=== PATIENT | male | born 1930 | race Caucasian/White ===

== ENCOUNTER 2019-07-15 06:55 | Inpatient (IN) | payer MEDICARE, BC ==
[~2019-07-15] VITALS: Ht 177.8 cm; Wt 82.8 kg
[2019-07-15 07:14] LABS: PO2 Arterial 80.6 mmHg (80-100)
[2019-07-15 07:46] LABS: BASOPHILS ABSOLUTE AUTO 0.05 K/mm3 (0.00-0.23); BASOPHILS PERCENT AUTO 0 % (0-2); EOSINOPHILS ABSOLUTE AUTO 0.19 K/mm3 (0.00-0.68); EOSINOPHILS PERCENT AUTO 1 % (0-6); Hematocrit 30.9 % (37.0-53.0); Hemoglobin 8.9 g/dL (13.5-17.5); IMMATURE GRAN ABSOLUTE AUTO 0.26 K/mm3 (0.00-0.10); IMMATURE GRAN PERCENT AUTO 2 % (0-1); LYMPHOCYTES ABSOLUTE AUTO 1.97 K/mm3 (0.84-5.20); LYMPHOCYTES PERCENT AUTO 11 % (21-46); MONOCYTES ABSOLUTE AUTO 1.22 K/mm3 (0.16-1.47); MONOCYTES PERCENT AUTO 7 % (4-13); Mean Corpuscular HGB 31.9 pg (26.0-34.0); Mean Corpuscular HGB Conc 28.8 g/dL (31.5-36.5); Mean Corpuscular Volume 111 fL (80-100); Mean Platelet Volume 10.4 fL (9.1-12.4); NEUTROPHILS ABSOLUTE AUTO 13.82 K/mm3 (1.96-9.15); NEUTROPHILS PERCENT AUTO 79 % (41-73); NRBC ABSOLUTE 0.12 K/mm3 (0.00-0.02); NRBC Auto 0.7 /100 WBC (0.0-0.2); Platelet Count 268 K/mm3 (150-400); RDW Coefficient Variation 18.9 % (11.7-14.2); RDW Standard Deviation 71.5 fL (35.1-46.3); Red Blood Cell Count 2.79 M/mm3 (4.30-5.90); White Blood Cell Count 17.51 K/mm3 (4.00-11.30)
[2019-07-15] MEDS ORDERED: CARV3.125 PO (07:53)
[2019-07-15] MEDS ORDERED: DULO60 PO (07:53)
[2019-07-15] MEDS ORDERED: DONEPEZIL HCL10 MG PO (07:54)
[2019-07-15] MEDS ORDERED: Entocort EC 3 mg3 MG PO (07:54)
[2019-07-15] MEDS ORDERED: IRON PO (07:54)
[2019-07-15] MEDS ORDERED: K-Dur20 MEQ PO (07:55)
[2019-07-15] MEDS ORDERED: VITAMIN C PO (07:55)
[2019-07-15] MEDS ORDERED: FURO40 PO (07:55)
[2019-07-15] MEDS ORDERED: SPIR25 PO (07:56)
[2019-07-15] MEDS ORDERED: LOSA25 PO (07:56)
[2019-07-15] MEDS ORDERED: ELIQUIS2.5 MG PO (07:56)
[2019-07-15] MEDS ORDERED: MELATONIN 5 MG1 EACH PO (07:57)
[2019-07-15] MEDS ORDERED: ALLER CLEAR PO (07:57)
[2019-07-15] MEDS ORDERED: TEMA30 PO (07:57)
[2019-07-15] MEDS ORDERED: DRON2.5 PO (07:58)
[2019-07-15 08:06] LABS: Alanine Aminotransfer (ALT/SGP 14 U/L (12-78); Albumin, Blood 2.8 g/dL (3.4-5.0); Albumin/Globulin Ratio 0.7 (0.8-1.8); Alk Phos 91 U/L (50-136); Anion Gap 17 mmol/L (6-16); Aspartate Aminotrans (AST/SGOT 22 U/L (12-37); Bilirubin, Total 0.4 mg/dL (0.1-1.0); Blood Urea Nitrogen 31 mg/dL (8-24); CO2, Blood 12 mmol/L (21-32); Calcium, Blood 8.2 mg/dL (8.5-10.1); Chloride, Blood 110 mmol/L (98-108); Creatinine, Blood 2.21 mg/dL (0.60-1.20); Globulin, Blood 3.9 g/dL (2.2-4.0); Glomerular Filtration Rate 28 (60-); Glucose, Blood 245 mg/dL (70-99); Potassium, Blood 5.2 mmol/L (3.5-5.5); Sodium, Blood 139 mmol/L (136-145); Total Protein, Blood 6.7 g/dL (6.4-8.2); Troponin I <0.015 ng/mL (0.000-0.040)
--- NOTE | 2019-07-15 12:00 | NUR ---
INITIAL ASSESSMENT Assumed care of pt upon arrival to ICU 3 from ED. Pt arrived wearing 15 LPM nonrebreather. SpO2 90% or greater. Lungs coarse t/o with diminished bases. SR per monitor. BP stable. Pt responsive to verbal stimulus. Follows commands with repositioning. Wet attends on arrival. Attends changed. Pt has colostomy. Pt falls asleep shortly after arrival to unit. Pt placed back on BiPAP 12/8, 80%. Pt had nitro paste to left chest wall, likely placed in ED. Placed call to Dr Fields to clarify if this should remain in place. Removed per Dr Fields's orders. Discussed somers catheter placement. New orders given.
[2019-07-15 12:20] LABS: Source, Urine Catheter
[2019-07-15 12:37] LABS: Bilirubin, Urine Neg (Neg); Blood, Urine Neg (Neg); Glucose Qualitative, Urine Neg (Neg); Ketones, Urine Neg (Neg); Leukocyte Esterase, Urine Neg (Neg); Nitrite, Urine Neg (Neg); Protein, Urine 1+ (Neg); Urobilinogen, Urine NORM (Normal)
[2019-07-15 12:41] LABS: Appearance, Urine Clear (Clear); Color, Urine Yellow (P-Yellow)
[2019-07-15] MEDS ORDERED: ALPR.5 PO (14:00)
[2019-07-15] MEDS ORDERED: FERSU300 PO (14:01)
[2019-07-15] MEDS ORDERED: ASCO500 PO (14:01)
[2019-07-15] MEDS ORDERED: Loratadine10 MG PO (14:02)
[2019-07-15] MEDS ORDERED: PANT40 PO (14:03)
[2019-07-15 14:07] LABS: PCO2 Arterial 28.6 mmHg (35-45); PO2 Arterial 189 mmHg (80-100); pH Blood Arterial 7.43 (7.35-7.45)
--- NOTE | 2019-07-15 15:16 | NUR ---
UPDATE This RN placed call to pt's spouse, Maryan "Promise" Aleyda to provide update. tiffany answered questions for admission, including meds and history. She states that patient takes both alprazolam and temazepam at bedtime. She also warns "He will try to get you to give him extra temazepam; don't do it". When aquiring health history, she states that pt was placed on hospice in 2017 for CHF and eventually graduated. She verifies pt's DNR/DNI status. Pt has copy of POLST in chart, however it is unsigned.
--- NOTE | 2019-07-15 15:30 | NUR ---
O2 UPDATE BiPAP 12/8 and 25% FiO2. Pt taken off BiPAP. Placed on 1 LPM NC to maintain SpO2 90% or greater. Will continue to reassess.
--- NOTE | 2019-07-15 15:48 | NUR ---
CALL PLACED TO DR HOLT Updated on pt condition. Pt okay for cardiac diet. Also notified provider that pt had been taking temazepam and alprazolam every night.
--- NOTE | 2019-07-15 18:09 | NUR ---
SUMMARY Pt A&O x 2. Answers questions. Verbalizes needs. Follows commands. Pt pleasant and cooperative with care. Pt has not gotten OOB this shift. Drinks water without difficulty or signs of aspiration. Pt refused dinner. Pt SR per monitor. Pt medical floor status without telemetry at this time.
--- NOTE | 2019-07-15 18:09 | NUR ---
MEDICAL FLOOR STATUS Dr Fields updated on pt condition. Pt medical floor status at this time, no telemetry ordered.
--- NOTE | 2019-07-15 20:00 | NUR ---
ASSUMED CARE OF PT, REPORT RCV'D FROM YAN HARPER. PT ALERT WITH PERIODS OF CONFUSION (HX OF DEMENTIA), COOPERATIVE WITH CARE. PT ASKS REPEATEDLY WHEN HE WILL BE ABLE TO GO HOME AND STATES HE "HAS TO PEE". REMINDED PT THAT HE HAS A URBINA IN PLACE. PT CURRENTLY ON 2L NC WITH SATS OF 95%. LUNG SOUNDS CLEAR WITH DIM BASES. NSR, BP WNL. PT HAS COLOSTOMY LLQ, APPLIANCE C/D/I. TEMP PROBE URBINA PATENT DRAINING CLEAR YELLOW URINE. CURRENT TEMP 99 DEGREES. SKIN ECCHYMOTIC SCATTERED BUE/BLE. GENERALIZED WEAKNESS. 20G IV LEFT SHOULDER SL, 20G IV RIGHT SHOULDER SL. SEE FULL SHIFT ASSESSMENT
[2019-07-16 05:07] LABS: Hematocrit 26.9 % (37.0-53.0); Hemoglobin 8.2 g/dL (13.5-17.5); Mean Corpuscular HGB 31.2 pg (26.0-34.0); Mean Corpuscular HGB Conc 30.5 g/dL (31.5-36.5); Mean Corpuscular Volume 102 fL (80-100); Mean Platelet Volume 10.2 fL (9.1-12.4); NRBC ABSOLUTE 0.13 K/mm3 (0.00-0.02); NRBC Auto 0.7 /100 WBC (0.0-0.2); Platelet Count 234 K/mm3 (150-400); RDW Coefficient Variation 18.5 % (11.7-14.2); RDW Standard Deviation 66.6 fL (35.1-46.3); Red Blood Cell Count 2.63 M/mm3 (4.30-5.90); White Blood Cell Count 18.71 K/mm3 (4.00-11.30)
[2019-07-16 05:37] LABS: Bun/Creatinine Ratio 15.2 (12.0-20.0); Calcium, Blood 7.9 mg/dL (8.5-10.1); Creatinine, Blood 2.24 mg/dL (0.60-1.20); Potassium, Blood 4.6 mmol/L (3.5-5.5)
--- NOTE | 2019-07-16 06:03 | NUR ---
SHIFT SUMMARY PATIENT ALERT, BUT EXPERIENCED SOME CONFUSION OVERNIGHT. HIS RIGHT LEG AND BUTTOCK HAVE BEEN CAUSING HIM DISCOMFORT, PATIENT MEDICATED PER EMAR FOR PAIN, REPOSITIONING ATTEMPTED AND A HEAT PAD HAS BEEN APPLIED TO THE AREA. THE PATIENT IS CURRENTLY COMFORTABLE. HE HAS BEEN UNABLE TO VOID ALL NIGHT, HIS BLADDER IS NOT DISTENDED AND SHOWS NO SIGN OF DISCOMFORT DUE TO IT. PATIENT HAS A HARD TIME BREATHING EVEN AT REST BUT O2 SATS ARE IN THE 90'S. BOTH IVS PATENT AND FLUSHED. BED IN LOWEST POSITION WITH WHEELS LOCKED AND ALARM ON. CALL LIGHT WITHIN REACH. REPORT GIVEN TO ONCOMING RN.
--- NOTE | 2019-07-16 07:59 | NUR ---
PT TO IMAGING FOR CHEST XRAY.
--- NOTE | 2019-07-16 13:29 | NUR ---
Echocardiogram completed.
--- NOTE | 2019-07-16 18:28 | NUR ---
SHIFT SUMMARY: PT TAKEN OFF OF OXYGEN VIA NC AT BEGINNING OF SHIFT. PT'S OXYGEN LEVEL REMAINED IN HIGH 90'S WITHOUT THE OXYGEN. PT LUNGS ARE DIMINISHED BILATERALLY. PT IS REFUSING TO EAT OR DRINK MUCH FLUIDS AND REPORTS NOT LIKING ENSURE. NO PAIN OR NAUSEA REPORTED TODAY. PT ABLE TO VOID IN URINAL AND SOME INCONTINENCE. PT WENT FOR CHEST XRAY TODAY AND ALSO HAD AN ECHO DONE. WILL CONTINUE TO MONITOR PT UNTIL GIVING REPORT TO NIGHT RN.
--- NOTE | 2019-07-16 20:49 | NUR ---
AWAKE EARLIER, VOICED CONFUSION TO 8 PM OR 8 AM. REDIRECTED. RESTING QUIETLY AT THIS TIME WITH CALL LIGHT IN REACH.
--- NOTE | 2019-07-17 04:01 | NUR ---
SHIFT SUMMARY HAS BEEN RESTING QUIETLY WITH FEW INTERRUPTIONS THIS SHIFT. EARLIER IN THE SHIFT WEEMED DISORIENTED TO TIME, WAS REDIRECTED AND PT WENT BACK TO SLEEP. WOKE UP LATER AND REQUESTED ANALGESIC FOR NECK PAIN. REPOSITIONED AND MED GIVEN (SEE MAR FOR DETAILS) MED EFFECTIVE, CURRENTLY RESTING QUIETLY. CALL LIGHT IN REACH.
[2019-07-17 04:50] LABS: BASOPHILS ABSOLUTE AUTO 0.05 K/mm3 (0.00-0.23); BASOPHILS PERCENT AUTO 0 % (0-2); EOSINOPHILS ABSOLUTE AUTO 0.18 K/mm3 (0.00-0.68); EOSINOPHILS PERCENT AUTO 1 % (0-6); Hematocrit 27.3 % (37.0-53.0); Hemoglobin 8.5 g/dL (13.5-17.5); IMMATURE GRAN PERCENT AUTO 2 % (0-1); LYMPHOCYTES ABSOLUTE AUTO 0.61 K/mm3 (0.84-5.20); LYMPHOCYTES PERCENT AUTO 5 % (21-46); MONOCYTES ABSOLUTE AUTO 1.13 K/mm3 (0.16-1.47); MONOCYTES PERCENT AUTO 9 % (4-13); Mean Corpuscular HGB 31.7 pg (26.0-34.0); Mean Corpuscular HGB Conc 31.1 g/dL (31.5-36.5); Mean Corpuscular Volume 102 fL (80-100); Mean Platelet Volume 10.1 fL (9.1-12.4); NEUTROPHILS ABSOLUTE AUTO 11.05 K/mm3 (1.96-9.15); NEUTROPHILS PERCENT AUTO 84 % (41-73); NRBC Auto 0.8 /100 WBC (0.0-0.2); Platelet Count 248 K/mm3 (150-400); RDW Coefficient Variation 18.2 % (11.7-14.2); RDW Standard Deviation 65.1 fL (35.1-46.3); Red Blood Cell Count 2.68 M/mm3 (4.30-5.90); White Blood Cell Count 13.22 K/mm3 (4.00-11.30)
[2019-07-17 05:10] LABS: Albumin, Blood 2.6 g/dL (3.4-5.0); Anion Gap 11 mmol/L (6-16); Blood Urea Nitrogen 38 mg/dL (8-24); Bun/Creatinine Ratio 15.6 (12.0-20.0); CO2, Blood 20 mmol/L (21-32); Chloride, Blood 102 mmol/L (98-108); Creatinine, Blood 2.44 mg/dL (0.60-1.20); Glomerular Filtration Rate 27 (60-); Glucose, Blood 108 mg/dL (70-99); Phosphorus, Blood 3.6 mg/dL (2.5-4.9); Potassium, Blood 4.9 mmol/L (3.5-5.5); Sodium, Blood 133 mmol/L (136-145)
--- NOTE | 2019-07-17 11:45 | NUR ---
NURSE NOTE: SPOKE WITH PT'S , GINNY, TODAY REGARDING HIS LACK OF APPETITE. WAS ABLE TO SUGGEST FOOD THAT THE PT LIKES TO EAT AT HOME. THIS RN COMMUNICATED THE REPORTED PREFERENCES TO THE CORE BLOWER. DR. MAURICIO INFORMED OF PT'S LACK OF APPETITE ALSO. PT'S SPOUSE BROUGHT LAAN KAMARA BREAKFAST CROSSIANTS TO HOSPITAL FOR PT. CROSSIANTS WERE PLACED IN PANTRY WITH PT DECAL TRANSFERRER THEM. WILL CONTINUE TO ENCOURAGE PT TO EAT AND DRINK.
--- NOTE | 2019-07-17 18:08 | NUR ---
SHIFT SUMMARY: PT REMAINED ON ROOM AIR WITH OXYGEN SATS IN THE 90'S. LUNG SOUNDS ARE DIMINISHED. PT GETS VERY SHORT OF BREATH WITH ANY EXERTION. PT REFUSED MOST MEALS TODAY ONLY EATING HALF OF A ALAN ASAD BREAKFAST SANDWICH AND DRINKING SOME ICE WATER AND A CHOCOLATE MILK. SPOKE WITH PT'S ABOUT FOOD PREFERENCES AND SPOKE WITH PHARMACY BENEFITS COORDINATOR. PT REPORTED NAUSEA AND PAIN AND WAS MEDICATED. SEE EMAR. VSS. WILL CONTINUE TO MONITOR PT UNTIL GIVING REPORT TO NIGHT RN.
--- NOTE | 2019-07-18 02:39 | NUR ---
NOTIFIED DR OLSON RE IV RCW INFILTRATION AND NOW THERE IS REDNESS IN THAT AREA. IV WAS DC'D AND A NEW IV WAS STARTED IN THE R FA.
[2019-07-18 05:01] LABS: BASOPHILS ABSOLUTE AUTO 0.03 K/mm3 (0.00-0.23); BASOPHILS PERCENT AUTO 0 % (0-2); EOSINOPHILS ABSOLUTE AUTO 0.17 K/mm3 (0.00-0.68); EOSINOPHILS PERCENT AUTO 2 % (0-6); Hematocrit 26.7 % (37.0-53.0); Hemoglobin 8.2 g/dL (13.5-17.5); IMMATURE GRAN ABSOLUTE AUTO 0.25 K/mm3 (0.00-0.10); IMMATURE GRAN PERCENT AUTO 2 % (0-1); LYMPHOCYTES ABSOLUTE AUTO 0.48 K/mm3 (0.84-5.20); LYMPHOCYTES PERCENT AUTO 5 % (21-46); MONOCYTES ABSOLUTE AUTO 0.81 K/mm3 (0.16-1.47); MONOCYTES PERCENT AUTO 8 % (4-13); Mean Corpuscular HGB 30.8 pg (26.0-34.0); Mean Corpuscular HGB Conc 30.7 g/dL (31.5-36.5); Mean Corpuscular Volume 100 fL (80-100); Mean Platelet Volume 10.3 fL (9.1-12.4); NEUTROPHILS ABSOLUTE AUTO 8.76 K/mm3 (1.96-9.15); NEUTROPHILS PERCENT AUTO 83 % (41-73); NRBC ABSOLUTE 0.11 K/mm3 (0.00-0.02); Platelet Count 236 K/mm3 (150-400); RDW Coefficient Variation 17.7 % (11.7-14.2); RDW Standard Deviation 63.8 fL (35.1-46.3); Red Blood Cell Count 2.66 M/mm3 (4.30-5.90)
--- NOTE | 2019-07-18 05:32 | NUR ---
SHIFT SUMMARY PT HAS RESTED OFF AND ON THIS SHIFT. PT RESTLESS AT TIMES MOVING BETWEEN BED AND THE CHAIR. PT IS UNSTEADY ON FEET AND IS GENERALLY WEAK. HE REQUIRED THE ASSISTANCE OF TWO STAFF MEMBERS TO MAKE IT BACK TO BED AFTER SITTING IN THE CHAIR. CONDOM CATH FOR MOST OF SHIFT, BUT WITH PT CONSTANTLY SHIFTING AND MOVING IN BED IT DID NOT STAY IN PLACE. CATH REMOVED, AND ATTENDS IN PLACE JUST IN CARE OF INCONTINENCE. PT CONTINUES TO RECEIVE IV ABX ORDERED. PT DID EXPERIENCE R UPPER CHEST IV INFILTRATION. PT HAD IV ZOSYN INFUSING, THERE WAS REDNESS IN THE AREA AND PAIN. NO OTHER SIDE EFFECTS THAT PT EXPERIENCED. PT HAS BEEN RECEIVING IV ZOSYN FOR A FEW DAYS WITH NO NOTED SIDE EFFECTS. ADJUNCT COMMUNICATIONS FACULTY MEMBER NOTIFIED, AND DR. LIANG WAS NOTIFIED OF IV INFILRTRATION AND SKIN IRRITATION WHILE RECEIVING IV ZOSYN. THERE NO NEW ORDERS GIVEN OR ANY CHANGE IN MEDICATIONS. PT SKIN HAS ALREADY STARTED TO IMPORVE WITH THE REMOVAL OF THE IV. NEW IV WAS STARTED. PT HAS MEDICATED FOR NECK PAIN WITH TYLENOL WITH EFFECT. NO OTHER CHANGES TO REPORT. BED IN LOWEST POSITION, CALL LIGHT WITHIN REACH. WILL CONTINUE TO MONITOR AND REPORT TO ONCOMING RN.
[2019-07-18 05:46] LABS: Albumin, Blood 2.6 g/dL (3.4-5.0); Anion Gap 14 mmol/L (6-16); Blood Urea Nitrogen 44 mg/dL (8-24); Bun/Creatinine Ratio 18.2 (12.0-20.0); CO2, Blood 17 mmol/L (21-32); Calcium, Blood 7.9 mg/dL (8.5-10.1); Chloride, Blood 102 mmol/L (98-108); Creatinine, Blood 2.42 mg/dL (0.60-1.20); Glomerular Filtration Rate 27 (60-); Glucose, Blood 115 mg/dL (70-99); Potassium, Blood 4.7 mmol/L (3.5-5.5); Sodium, Blood 133 mmol/L (136-145)
--- NOTE | 2019-07-18 12:44 | NUR ---
Initial Visit: Palliative Care Consult for AD/POLST and Goals of Care. Pt admitted to the hospital for Acute Respirtory Failure with Hypoxia. Pt's medical history and comorbidities include: CHF, Afib, CAD, HTN, Ischemic Cardiomyopathy, Prostate Cancer, Dementia, CKD III/IV, and Hyperlipidemia. Pt resting in bed upon arrival. Pt is A&OX2. Pt unable to verbalize appropriate reason for hospital stay and correct year. Pt reports dyspnea at rest. Mild SOB noted while Pt rests in bed as evidenced by respiratory effort and speaking in short sentences. Pt denies pain, nausea, and anxiety at this time. Pt keeps his eyes closed for much of the visit and appears mildly lethargic. When asked about his food intake, Pt replies that he is just not hungry. Ended visit to allow Pt to rest. Spoke with Bedside RN Elvira and MAYTE Baldwin. Pt is incontinent of bladder, has colostomy, requires 1 person assist with transfers, and is only able to take a few steps before he becomes to weak and SOB. Elvira reports Pt is not eating. Nurses note from last night indicated Pt required 2 person assist with transfer from chair to bed. Called and spoke with Pt's Maryan. Engaged in theapeutic discussion regarding goals of care. Maria Esther reports a significant decline with Pt over the last 2 weeks. Pt spends most of his time in bed or on the couch sleeping. Pt was able to ambulate with walker but was only able to travel approximately 6 feet before needing to rest and recover. Pt also requires assistance with bathing and dressing. Listened as Maryan expresses concerns regarding ability to care for Pt in his current conditions. Inquired about friends or family to assist her. Maryan reports her step daughter is willing to come up from [place] to help with Pt's needs. Maryan reports Pt was on hospice in 2017 but then stabalized and was taken off hospice. Discussed hospice further with Maria Esther expressing interest in hospice services again. Spoke with Dr Mary and Exchange Trouble Shooter Estella. Reviewed case and spouse's wishes. PPS 40% ADLs 5/6 FAST 6E NYHA Class IV Pt may benefit from hospice intake nurse evaluation to determine appropriateness for hospice services. Palliative Care will remain available.
--- NOTE | 2019-07-18 18:16 | NUR ---
SHIFT SUMMARY PT UP TO CHAIR FOR BREAKFAST AND AFTER LUNCH. HASN'T EATEN MEALS OFFERED TO HIM. BROUGHT ICE CREAM AND HE ATE APPROX 1/2 CUP. ALSO CHEESE CRACKERS BROUGHT AND HE ATE 3 CRACKERS. SAID HE DIDN'T WANT TO HAVE HIS ALAN ASAD BREAKFAST SANDWICHES HIS BROUGHT.
--- NOTE | 2019-07-19 05:21 | NUR ---
SHIFT SUMMARY A/O, ABLE TO MAKE NEEDS KNOWN. [place]. ANSWERS QUESTIONS APPROPRIATELY. DOES NOT UTILIZE CALL SYSTEM. C/O PAIN/DISCOMFORT; MEDICATED PER EMAR. APPEARED TO REST SOME OF SHIFT AND THEN BECAME VERY RESTLESS. C/O NAUSEA; MEDICATED PER EMAR. IV ABX INFUSED WITHOUT COMPLICATION. NO ACUTE CHANGES OVERNIGHT. VSS/AFEBRILE. BED REMAINED IN LOWEST POSITION. CALL LIGHT AND BELONGINGS WITHIN REACH. WCTM. REPORT TO ONCOMING RN.
[2019-07-19 05:32] LABS: Hematocrit 30.3 % (37.0-53.0); Mean Corpuscular HGB 30.8 pg (26.0-34.0); Mean Corpuscular HGB Conc 29.7 g/dL (31.5-36.5); Mean Platelet Volume 10.6 fL (9.1-12.4); NRBC Auto 2.2 /100 WBC (0.0-0.2); Platelet Count 238 K/mm3 (150-400); RDW Coefficient Variation 17.6 % (11.7-14.2); RDW Standard Deviation 65.1 fL (35.1-46.3); Red Blood Cell Count 2.92 M/mm3 (4.30-5.90); White Blood Cell Count 9.16 K/mm3 (4.00-11.30)
[2019-07-19 05:33] LABS: Mean Corpuscular Volume 104 fL (80-100)
[2019-07-19 06:00] LABS: Bun/Creatinine Ratio 20.4 (12.0-20.0); Calcium, Blood 8.2 mg/dL (8.5-10.1); Creatinine, Blood 2.3 mg/dL (0.60-1.20); Potassium, Blood 4.4 mmol/L (3.5-5.5)
--- NOTE | 2019-07-19 11:30 | NUR ---
UPDATED. PT GINNY UPDATED ON PT CONDTION. PINKY CALLED REQUESTED BY . WILL CONTINUE TO MONITOR.
--- NOTE | 2019-07-19 13:12 | NUR ---
Pt resting in bed upon arrival. Pt reports mild to moderate cramping in his right leg. Listened as Pt states "I'm not going to make it". Requested Pt to clarify with Pt responding "I'm going to " and "I'm do'nt think I'll make it through the day". Continued therapeutic listening. Offered for Resistance Welding Machine Operator to visit and Pt is agreeable. Pt expresses appreciation of visit. Spoke with Bedside RN Mallorie and discussed case. Consideration of placing Pt on comfort care was discussed. Spoke with Tamara Yusuf and discussed case. [facility] has accepted Pt and will place Pt onto services on Tuesday. Spoke with Dr Mary, discussed case and consideration for comfort care. If Pt shows decline then comfort care may be considered. Spoke with Resistance Welding Machine Operator Ronal and relayed Pt's request for visit. Palliative Care will remain available.
--- NOTE | 2019-07-19 15:08 | NUR ---
ANXIETY/THOUGHTS OF DYING. PT HAS EXPRESSED THOUGHTS THAT HE IS DYING THROUGHOUT THE DAY. INCREASING THE DAY HAS PROGRESSED. [facility] IN PALLIATIVE CARE CONTACTED. THIS AFTERNOON, PT STARTED CALLING HIS FAMILY AND SAYING HIS GOODBYES. PT STATES HE "IS GOING TO TODAY." WHEN ASKED WHY HE THINKS THAT, PT REPLIES "I JUST NOW". PT VERY RESTLESS IN BED, TAKING OFF BLANKETS AND SOCKS. DR. GAMBINO CALLED & NOTIFIED OF PT BEHAVIORS & COMMENTS. ORDERED OT XANAX TO BE ORDERED. PT MEDICATED. UPDATED. WILL CONTINUE TO MONITOR.
--- NOTE | 2019-07-19 16:06 | NUR ---
Spiritual care visit conducted. Patient immediately tells me that he is dying and he has concerns. We talk about his [employer]ec[employer]al annabelle, about regrets and about his fears. Patient shares personal information and is tearful at times. I listen empathiacally, hear confession, discuss issues of and dying, and provide pastoral middle school guidance counselor, recitation of scripture and prayer. Patient responds well and shows signs of increased peace and catharsis. I will continue to remain available to patient and family.
--- NOTE | 2019-07-19 17:26 | NUR ---
SHIFT SUMMARY PT AT BEDSIDE AT THIS TIME. PT CALMED DOWN AFTER DOSE OF XANAX. PT & VISITING QUIETLY. PT NOT TALKING OF & DYING AT THIS TIME. NO OTHER ACUTE CHANGES IN ASSESSMENT AT THIS TIME. OSTOMY APPLIANCE CHANGED THIS SHIFT. VSS. WILL CONTINUE TO MONITOR UNTIL TURNOVER IS COMPLETE.
--- NOTE | 2019-07-20 06:29 | NUR ---
SUMMARY PT HAD SOME R LEG DISCOMFORT AND WAS TX PER EMAR W/ RELIEF. PT HAS SLEPT MOST OF SHIFT. PT HAD LITTLE PO INTAKE AND HAD ONLY ONE NOTED VOID. PT CURRENTLY SLEEPING IN NO DISTRESS. CALL LIGHT IN REACH AND BED ALARM ON.
--- NOTE | 2019-07-20 10:43 | NUR ---
PT GINNY UPDATED ON PT CONDITION. PT STATES HE IS FEELING MUCH BETTER THAN YESTERDAY. PT CURRENTLY SLEEPING IN BED.
--- NOTE | 2019-07-20 18:30 | NUR ---
SHIFT SUMMARY PT HAD A MUCH BETTER TODAY COMPARED TO YESTERDAY. PT CALM THROUGHOUT THE DAY, LESS COMMENTS ABOUT & DYING TODAY. NO PRN ANXIETY MED NEEDED THIS SHIFT. PT , GINNY UPDATED THIS SHIFT. PT UP TO CHAIR WITH THERAPY. POOR APPETITE, BUT AGREEABLE TO SOME FOODS TODAY. NO OTHER ACUTE CHANGES IN ASSESSMENT AT THIS TIME. VSS. WILL CONTINUE MONITOR UNTIL TURNOVER IS COMPLETE.
--- NOTE | 2019-07-21 04:14 | NUR ---
SUMMARY PT WAS ABLE TO EAT SOME CAKE AND SOUP THIS SHIFT. PT ONLY ISSUE HAS BEEN R LEG DISCOMFORT. PT TX PER EMAR W/ RELIEF. PT HAD SOME INCREASED ANXIETY AND TX PER EMAR. PT CURRENTLY SLEEPING AND BREATHING EASY. CALL LIGHT IN REACH. BED ALARM ON .
--- NOTE | 2019-07-21 16:08 | NUR ---
PT IS A/OX3, PLEASANT AND COOPERATIVE, THE PT IS UP WITH ASSIST TO THE CHAIR, THE PT HAS REMAINEDIN BED FOR MOST OF THE DAY AGREED TO GET UP TO THE CHAIR FOR DINNER, THE PT IS SOB WITH MINIMAL ACTIVITY, THE WAS MEDICATED FOR RIGHT LEG PAIN X1 WITH TYLENOL TODAY, PT APPEARS TO BE BREATHING EASILY AT REST ON RA AT THIS TIME, FAMILY CALLED TO CHECK ON THE PT TODAY, CALL LIGHT IN REACH, WILL CONTINUE TO MONITOR AND ASSESS FOR CHANGES
[2019-07-22 04:39] LABS: Hematocrit 30.2 % (37.0-53.0); Mean Corpuscular HGB 30.3 pg (26.0-34.0); Mean Corpuscular HGB Conc 29.8 g/dL (31.5-36.5); Mean Corpuscular Volume 102 fL (80-100); Mean Platelet Volume 10.5 fL (9.1-12.4); NRBC ABSOLUTE 0.22 K/mm3 (0.00-0.02); Platelet Count 245 K/mm3 (150-400); RDW Coefficient Variation 17.9 % (11.7-14.2); RDW Standard Deviation 65.4 fL (35.1-46.3); Red Blood Cell Count 2.97 M/mm3 (4.30-5.90); White Blood Cell Count 7.36 K/mm3 (4.00-11.30)
[2019-07-22 04:57] LABS: Bun/Creatinine Ratio 19.6 (12.0-20.0); Calcium, Blood 8.2 mg/dL (8.5-10.1); Creatinine, Blood 2.19 mg/dL (0.60-1.20)
--- NOTE | 2019-07-22 05:29 | NUR ---
SHIFT SUMMARY PT HAD NO ACUTE CHANGES THIS SHIFT, SLEPT VERY LIGHT THEN BECAME MORE FIRESTLESS THE NIGHT PROGRESSED STATING "I JUST DON'T FEEL GOOD", AT 0400 PT C/O R LEG PAIN 06/07, TYLENOL ADMIN W/XANAX, PT SLEEPING AT THIS TIME, CALL LIGHT IN REACH, WILL CONT TO MONITOR UNTIL REPORT GIVEN TO DAY RN.
--- NOTE | 2019-07-22 16:15 | NUR ---
pt is a/ox3, pleasant and cooperative, the pt did have some periods of forgetfullness today and had semmed more irratable, it was reported that the pt did not sleep well last night, the pt so far today has denied any pain, the pt is breathing easily on ra at rest, becomes very SOB with minimal activity, the pts called to check on the pt today, the pt was up to the chair for breakfast and lunch, call light in reach will continue to monitor and assess for changes
--- NOTE | 2019-07-23 04:19 | NUR ---
SUMMARY: A/OX3 BUT IS OCCASIONALLY FORGETFULL TO SITUATION/DATE AND REORIENTS W/REMINDERS. HE'S A SBA OOB BUT WASN'T UP THIS SHIFT AND WAS ASSISTED W/ REPOSITIONING IN BED. HEEL PROTECTORS IN PLACE AND BLE'S FLOATED. ATTENDS CHANGED PRN AND URINAL ASSIST PROVIDED. IV ABX RECIEVED THEN SL. MEPILEX TO L.KNEE REMAINS C/D/I, OTHER BRUISES AND HEALING SCABS OBSERVED. CHOLOSTOMY INTACT AND HAS VERY LITTLE OUTPUT. PT APPEARS SOB AT REST AT TIMES BUT SPO2 WNL ON RA AND INTERMITTENT WHEEZES AUSCULTATED. VSS/AFEBRILE, NO ACUTE CHANGES. POSSIBLE D/C HOME ON HOSPICE TODAY. WCTM AND REPORT TO DAY RN.
--- NOTE | 2019-07-23 09:53 | NUR ---
0950 PT TO DISCHARGE HOME ON [facility]. PT HAD IV REMOVED PRIOR TO DC. NO SS OF INFECTION NOTED. PT DRESSED BY STAFF AND WC TO TRANSPORT VAN. MEDS SENT TO [employer] .
== END 2019-07-23 09:56 | disposition hospice, home (50) | DRG 871 ==
LOC: ER 06:55 → ICUE 08:55 → MEDS 08:55 → ICUW 08:55 → EDBD 08:55 → ICUE 10:16 → MEDS 10:58 → ICUE 11:02 → MEDS 21:08
PROVIDERS: Emergency Medicine; Family Medicine; Internal Medicine; ADMIT Internal Medicine
DX: A41.9 Sepsis, unspecified organism (principal); R65.21 Severe sepsis with septic shock; J96.01 Acute respiratory failure with hypoxia; I50.43 Acute on chronic combined systolic (congestive) and diastolic (congestive) heart failure; J18.9 Pneumonia, unspecified organism; N17.9 Acute kidney failure, unspecified; E87.2 Acidosis; N18.4 Chronic kidney disease, stage 4 (severe); I13.0 Hypertensive heart and chronic kidney disease with heart failure and stage 1 through stage 4 chronic kidney disease, or unspecified chronic kidney disease; I42.9 Cardiomyopathy, unspecified; I25.10 Atherosclerotic heart disease of native coronary artery without angina pectoris; I48.91 Unspecified atrial fibrillation; Z66 Do not resuscitate; D64.9 Anemia, unspecified; I27.20 Pulmonary hypertension, unspecified; D63.1 Anemia in chronic kidney disease; F03.90 Unspecified dementia, unspecified severity, without behavioral disturbance, psychotic disturbance, mood disturbance, and anxiety; E78.5 Hyperlipidemia, unspecified; I25.5 Ischemic cardiomyopathy; Z20.828 Contact with and (suspected) exposure to other viral communicable diseases; T68.XXXA Hypothermia, initial encounter; Z95.1 Presence of aortocoronary bypass graft; Z85.46 Personal history of malignant neoplasm of prostate
CPT/HCPCS: 36415; 36600; 51702; 71045; 71046; 80048; 80053; 80069; 82803; 82947; 83605; 83880; 84145; 84484; 85025; 85027; 87040; 93005; 93010; 93306; 94660; 96374; 96375; 97110; 97112; 97163; 97165; 97530; 99285-25; A9270; J1940; J2405; J2543; J7050; J7120; Q0167